=== PATIENT | female | born 1945 | race Caucasian/White ===

== ENCOUNTER 2020-05-05 08:58 | Emergency (ER) | payer MEDICARE, OTHER ==
[2020-05-05] MEDS: Acetaminophen 325 MG Tab PO ONE (09:29)
--- NOTE | 2020-05-05 09:30 | EDM.PDOC ---
ED HPI GENERAL MEDICAL PROBLEM - General Stated Complaint: INJURED RIGHT ARM Time Seen by Provider: 05/05/20 09:15 Source of Information: Reports: Patient History Limitations: Reports: No Limitations - History of Present Illness INITIAL COMMENTS - FREE TEXT/NARRATIVE: patient fell last night when she stubbed her toe on furniture landing on right wrist. Took tylenol at home last night with some relief. Presents today with increased pain, swelling, and bruising. Location: Reports: Upper Extremity, Right Severity: Moderate Improves with: Reports: None Worsens with: Reports: Movement Associated Symptoms: Reports: No Other Symptoms - Related Data Allergies Allergy/AdvReac Type Severity Reaction Status Date / Time codeine Allergy Chest Verified 02/03/14 07:28 Tightness naproxen [From Naprosyn] Allergy Rash Verified 02/03/14 07:28 Home Meds: Home Meds Aspirin [Adult Low Dose Aspirin EC] 81 mg PO DAILY 02/02/14 [History] Betamethasone/Propylene Glyc [Diprolene 0.05%] 1 applic TOP BID 02/02/14 [History] Calcium Citrate/Vitamin D3 [Calcium Citrate with D Tablet] 1 each PO DAILY 02/02/14 [History] Cholecalciferol (Vitamin D3) [Vitamin D3] 5,000 unit PO DAILY 02/02/14 [History] Cyanocobalamin (Vitamin B12) [Vitamin B12] 1,000 mcg PO DAILY 02/02/14 [History] Ferrous Gluconate 324 mg PO BID 02/02/14 [History] Iron/Multivits,Stress Formula [Stress Formula with Iron] 1 tab PO DAILY 02/02/14 [History] Levothyroxine [Synthroid] 50 mcg PO DAILY 02/02/14 [History] Lidocaine 5% [Lidoderm 5%] 1 - 3 patch TOP DAILY 02/02/14 [History] Multivitamin [Multi Vitamin Daily] 1 each PO DAILY 02/02/14 [History] Vitamin B Complex [B Complex] 1 each PO DAILY 02/02/14 [History] traMADol [Ultram] 50 mg PO Q6H PRN 02/02/14 [History] Review of Systems - Review of Systems Review Of Systems: See Below Constitutional: Reports: No Symptoms Eyes: Reports: No Symptoms Ears: Reports: No Symptoms Nose: Reports: No Symptoms Mouth/Throat: Reports: No Symptoms Respiratory: Reports: No Symptoms Cardiovascular: Reports: No Symptoms GI/Abdominal: Reports: No Symptoms Genitourinary: Reports: No Symptoms Musculoskeletal: Reports: Arm Pain Skin: Reports: Bruising Neurological: Reports: No Symptoms Psychiatric: Reports: No Symptoms ED EXAM, GENERAL - Physical Exam Exam: See Below Exam Limited By: No Limitations General Appearance: Alert, Mild Distress Throat/Mouth: Normal Voice Head: Atraumatic Neck: Full Range of Motion Respiratory/Chest: No Respiratory Distress Peripheral Pulses: 3+: Radial (L), Radial (R) Back Exam: Full Range of Motion Extremities: Joint Swelling, Arm Pain, Limited Range of Motion Neurological: Alert, Oriented, Normal Gait, No Motor/Sensory Deficits Psychiatric: Normal Affect, Normal Mood Skin Exam: Warm, Dry, Intact Course - Vital Signs Last Recorded V/S: Last Vital Signs Temp 97.6 F 05/05/20 10:04 Pulse 82 05/05/20 10:04 Resp 16 05/05/20 10:04 BP 143/71 H 05/05/20 10:04 Pulse Ox 99 05/05/20 10:04 - Orders/Labs/Meds Orders: Active Orders 24 hr Category Date Time Status Wrist Comp Min 3V Rt [CR] Stat Exams 05/05/20 09:07 Taken Meds: Medications Discontinued Medications Generic Name Dose Route Start Last Admin Trade Name Felecia PRN Reason Stop Dose Admin Acetaminophen Confirm 05/05/20 09:32 Tylenol Administered 05/05/20 09:33 Dose 650 mg .ROUTE .STK-MED ONE Acetaminophen 650 mg 05/05/20 09:24 05/05/20 09:29 Tylenol PO 05/05/20 09:25 650 mg NOW ONE Administration Departure - Departure Time of Disposition: 10:20 Disposition: Home, Self-Care 01 Condition: Good Clinical Impression: Wrist fracture, right Qualifiers: Encounter type: initial encounter Fracture type: closed Qualified Code(s): S62.101A - Fracture of unspecified carpal bone, right wrist, initial encounter for closed fracture - Discharge Information *PRESCRIPTION DRUG MONITORING PROGRAM REVIEWED*: Not Applicable *COPY OF PRESCRIPTION DRUG MONITORING REPORT IN PATIENT BARBARA: Not Applicable Instructions: Wrist Fracture Treated With Immobilization Referrals: PCP,None [Primary Care Provider] - Forms: ED Department Discharge Additional Instructions: Ice and elevate right wrist, for 15-20 minutes every 3-4 hours. Take tylenol as needed. Return to ED for any increased or new concerning symptoms. Follow up with your PCP next week for recheck and casting. . Sepsis Event Note (ED) - Focused Exam Vital Signs: Vital Signs Temp Pulse Resp BP Pulse Ox 05/05/20 10:04 97.6 F 82 16 143/71 H 99 - My Orders Last 24 Hours: My Active Orders 05/05/20 09:07 Wrist Comp Min 3V Rt [CR] Stat - Assessment/Plan Last 24 Hours: My Active Orders 05/05/20 09:07 Wrist Comp Min 3V Rt [CR] Stat
[2020-05-05] MEDS ORDERED: Acetaminophen 325 MG Tab ONE (09:32)
[2020-05-05 10:07] VITALS: BP 143/71; PULSE 82
--- NOTE | 2020-05-05 10:32 | CR ---
DATE OF SERVICE: 05/05/2020 CLINICAL DATA: Injury Right Wrist: No priors. There is a minimally displaced, minimally impacted oblique fracture through the distal radial metaphysis. There is also mildly impacted, minimally displaced fracture through the distal ulnar metaphysis. There is a mildly displaced fracture through the base of the ulnar styloid. No other acute abnormalities. There are osteoarthritic changes involving multiple joints. There is a healed fracture through the distal radial diaphysis that is fixed internally. There is an intramedullary afia within the ulna. [email or web address]
== END 2020-05-05 10:20 | disposition home or self-care (01) ==
LOC: LB.ED 08:58
DX: S62.101A Fracture of unspecified carpal bone, right wrist, initial encounter for closed fracture (principal); Z88.5 Allergy status to narcotic agent; Z88.8 Allergy status to other drugs, medicaments and biological substances; Z79.82 Long term (current) use of aspirin; Z79.899 Other long term (current) drug therapy; W01.198A Fall on same level from slipping, tripping and stumbling with subsequent striking against other object, initial encounter
CPT/HCPCS: 29125; 73110-RT; 99282; 99283-25; A9270-GY

== ENCOUNTER 2021-06-17 10:43 | Emergency (ER) | payer MEDICARE, OTHER ==
[2021-06-17] MEDS: HYDROmorphone 2 MG/ML SDV SUBCUT ONE (11:12)
[2021-06-17] MEDS ORDERED: Acetaminophen/HYDROcodone 325-5 MG Tab ONE (12:00)
--- NOTE | 2021-06-17 12:49 | EDM.PDOC ---
ED HPI GENERAL MEDICAL PROBLEM - General Chief Complaint: General Stated Complaint: arm injury Time Seen by Provider: 06/17/21 11:00 - History of Present Illness INITIAL COMMENTS - FREE TEXT/NARRATIVE: Pt is here with C/O falling at home and injuring her left arm. She thinks she broke it. She just lost her balance she tells me. She also fell 2 days ago when she stumbled, with no obvious injuries. She denies any other injuries, stating it is just her left arm, from the elbow to the hand. - Related Data Allergies Allergy/AdvReac Type Severity Reaction Status Date / Time codeine Allergy Chest Verified 02/03/14 07:28 Tightness naproxen [From Naprosyn] Allergy Rash Verified 02/03/14 07:28 Home Meds: Home Meds Aspirin [Adult Low Dose Aspirin EC] 81 mg PO DAILY 02/02/14 [History] Betamethasone/Propylene Glyc [Diprolene 0.05%] 1 applic TOP BID 02/02/14 [History] Calcium Citrate/Vitamin D3 [Calcium Citrate with D Tablet] 1 each PO DAILY [History] Cholecalciferol (Vitamin D3) [Vitamin D3] 5,000 unit PO DAILY 02/02/14 [History] Cyanocobalamin (Vitamin B12) [Vitamin B12] 1,000 mcg PO DAILY 02/02/14 [History] Ferrous Gluconate 324 mg PO BID 02/02/14 [History] Iron/Multivits,Stress Formula [Stress Formula with Iron] 1 tab PO DAILY 02/02/14 [History] Levothyroxine [Synthroid] 50 mcg PO DAILY 02/02/14 [History] Lidocaine 5% [Lidoderm 5%] 1 - 3 patch TOP DAILY 02/02/14 [History] Multivitamin [Multi Vitamin Daily] 1 each PO DAILY 02/02/14 [History] Vitamin B Complex [B Complex] 1 each PO DAILY 02/02/14 [History] traMADol [Ultram] 50 mg PO Q6H PRN 02/02/14 [History] Past Medical History - Past Health History Medical/Surgical History: Denies Medical/Surgical History Musculoskeletal History: Reports: Fracture Social & Family History - Tobacco Use Tobacco Use Status *Q: Light Tobacco User Years of Tobacco use: 18 Packs/Tins Daily: 1 ED ROS GENERAL - Review of Systems Review Of Systems: Comprehensive ROS is negative, except as noted in HPI. Musculoskeletal: Reports: Other (left arm injury.) ED EXAM, GENERAL - Physical Exam Exam: See Below General Appearance: Moderate Distress (due to the pain she rates at 10/10.) Extremities: Other (her left arm is wrapped in an [place] wrap. Her hand is bruised and moderately swollen. skin is intact. she has pain with light touch from the elbow down to her hand.) Course - Vital Signs Last Recorded V/S: Last Vital Signs Temp 98.0 F 06/17/21 11:28 Pulse 86 06/17/21 11:28 Resp 24 H 06/17/21 11:28 BP 108/37 L 06/17/21 11:28 Pulse Ox - Orders/Labs/Meds Orders: Active Orders 24 hr Category Date Time Status Elbow Min 3V Lt [CR] Stat Exams 06/17/21 11:12 Taken Hand Comp Min 3V Lt [CR] Stat Exams 06/17/21 11:12 Taken Wrist Comp Min 3V Lt [CR] Stat Exams 06/17/21 11:12 Taken Meds: Medications Discontinued Medications Generic Name Dose Route Start Last Admin Trade Name Freq PRN Reason Stop Dose Admin Hydromorphone HCl 1 mg 06/17/21 11:12 Hydromorphone 2 Mg/Ml Sdv SUBCUT 06/17/21 11:13 ONETIME ONE - Re-Assessments/Exams Free Text/Narrative Re-Assessment/Exam: 06/17/21 12:47 She was given Dilaudid 1 mg Subq. X-RAYS of her elbow, wrist, hand show a distal radial fracture, with minimal displacement. Looks like a little impaction. We put her in a gutter splint with a sling. She was still C/O alot of pain, but after splinting she feels better. Hensel will be given for pain control. She is to apple ice frequently for 2-3 days. She needs to re check in the clinic or with Ortho in 3-5 days for casting, sooner prn. Departure - Departure Time of Disposition: 12:40 Disposition: Home, Self-Care 01 Condition: Good Clinical Impression: Radial fracture Qualifiers: Encounter type: initial encounter Radius location: distal Fracture type: closed Fracture morphology: other extra-articular Laterality: left Qualified Code(s): S52.423U - Other extraarticular fracture of lower end of left radius, initial encounter for closed fracture - Discharge Information *PRESCRIPTION DRUG MONITORING PROGRAM REVIEWED*: Yes *COPY OF PRESCRIPTION DRUG MONITORING REPORT IN PATIENT BARBARA: Yes Instructions: Lisfranc Injury Referrals: PCP,None [Primary Care Provider] - Forms: ED Department Discharge Care Plan Goals: follow up with clinic or ortho at hospital on Friday for cast placement Pain medication as directed 4-6 hours as needed Sepsis Event Note (ED) - Evaluation Sepsis Screening Result: No Definite Risk - Focused Exam Vital Signs: Vital Signs Temp Pulse Resp BP 06/17/21 11:28 98.0 F 86 24 H 108/37 L - My Orders Last 24 Hours: My Active Orders 06/17/21 11:12 Elbow Min 3V Lt [CR] Stat Hand Comp Min 3V Lt [CR] Stat Wrist Comp Min 3V Lt [CR] Stat - Assessment/Plan Last 24 Hours: My Active Orders 06/17/21 11:12 Elbow Min 3V Lt [CR] Stat Hand Comp Min 3V Lt [CR] Stat Wrist Comp Min 3V Lt [CR] Stat
--- NOTE | 2021-06-18 09:30 | CR ---
Date of Service: 06/17/21 Clinical Data: injury LEFT HAND: There is an impacted, comminuted, intraarticular fracture through the distal radius. There is also a mildly displaced avulsion fracture through the tip of the ulnar styloid. No other acute abnormalities. There are osteoarthritic changes involving multiple joints. The base of the first metacarpal is subluxed laterally with respect to the greater multangular carpal bone. There are multiple corticated osseous densities adjacent to the carpometacarpal joint of the thumb consistent with old bony avulsions or loose bodies. No other significant findings. [id number] [facility]
--- NOTE | 2021-06-18 09:35 | CR ---
Date of Service: 06/17/21 Clinical Data: injury LEFT WRIST: There is a mildly impacted, comminuted, intraarticular fracture through the distal radius. There is a mildly displaced avulsion fracture from the tip of the ulnar styloid. There are osteoarthritic changes involving multiple joints of the wrist. There is mild lateral subluxation of the base of the first metacarpal with respect to the greater multangular carpal bone. There are multiple corticated osseous densities adjacent to the carpometacarpal joint of the thumb consistent with old bony avulsions or loose bodies. No other significant findings. [id number] [facility]
--- NOTE | 2021-06-18 09:53 | CR ---
Date of Service: 06/17/21 Clinical Data: injury LEFT ELBOW: The lateral views are not adequately positioned. I do not see an acute fracture or dislocation. No evidence of joint effusion; however, both cannot be completely excluded. No other significant findings. [id number] [facility]
== END 2021-06-17 12:50 | disposition home or self-care (01) ==
LOC: LB.ED 10:43
DX: S52.552A Other extraarticular fracture of lower end of left radius, initial encounter for closed fracture (principal); Z72.0 Tobacco use; Z79.899 Other long term (current) drug therapy; Z79.82 Long term (current) use of aspirin; Z88.8 Allergy status to other drugs, medicaments and biological substances; W01.0XXA Fall on same level from slipping, tripping and stumbling without subsequent striking against object, initial encounter
CPT/HCPCS: 29125; 73080; 73110; 73130; 96372; 99283; A9270; J1170

== ENCOUNTER 2021-07-12 11:52 | Observation (INO) | payer MEDICARE, OTHER ==
[2021-07-12] MEDS ORDERED: HYDROmorphone 2 MG/ML SDV ONE (12:12)
[2021-07-12] MEDS ORDERED: HYDROmorphone 2 MG/ML SDV IM ONE (12:15)
[2021-07-12] MEDS ORDERED: Ketorolac 30 MG/ML SDV IM ONE ×2 (12:57→13:01)
[2021-07-12] MEDS ORDERED: Ondansetron 4 MG Tab.DIS PO PRN ×2 (12:57→13:49)
[2021-07-12] MEDS ORDERED: Ketorolac 30 MG/ML SDV ONE (13:28)
[2021-07-12] MEDS: Acetaminophen/HYDROcodone 325-5 MG Tab PO PRN ×2 (17:13→21:15)
[2021-07-12] MEDS ORDERED: Sertraline 100 MG Tab PO SCH (20:00)
[2021-07-12] MEDS: FERROUS GLUCONATE 324 MG PO SCH (20:10)
[2021-07-13] MEDS: Acetaminophen/HYDROcodone 325-5 MG Tab PO PRN ×5 (01:38→20:40)
[2021-07-13] MEDS: [UNRECOGNIZED DRUG - OTHER] PO SCH (09:52)
[2021-07-13] MEDS: VITAMIN D3 PO SCH (09:52)
[2021-07-13] MEDS: Non-Formulary Medication 1 Each (Aspirin [Adult Low Dose Aspirin Ec] 81 MG Tablet.Dr) PO SCH (09:52)
[2021-07-13] MEDS: CALCIUM CITRATE PO SCH (09:52)
[2021-07-13] MEDS: Non-Formulary Medication 1 Each (Cholecalciferol (Vitamin D3) [Vitamin D3] 5,000 UNIT Caps PO SCH (09:52)
[2021-07-13] MEDS: CYANOCOBALAMIN 1000 MCG PO SCH (09:53)
[2021-07-13] MEDS: FERROUS GLUCONATE 324 MG PO SCH ×2 (09:53→20:34)
[2021-07-13] MEDS: Non-Formulary Medication 1 Each (Multivitamin [Multi-Vitamin Daily] 1 EACH Tablet) PO SCH (09:53)
[2021-07-13] MEDS: LEVOTHYROXINE 50 MCG PO SCH (09:53)
[2021-07-13] MEDS: Non-Formulary Medication 1 Each (Vitamin B Complex [B Complex] 1 EACH Tablet) PO SCH (09:54)
[2021-07-13] MEDS: Ibuprofen 400 MG Tab ONE ×2 (17:45→18:13)
[2021-07-13] MEDS: Ibuprofen 400 MG Tab PO SCH (18:13)
[2021-07-14] MEDS: Ibuprofen 400 MG Tab PO SCH (02:17)
[2021-07-14] MEDS: [UNRECOGNIZED DRUG - OTHER] PO SCH (07:20)
[2021-07-14] MEDS: CALCIUM CITRATE PO SCH (07:20)
[2021-07-14] MEDS: VITAMIN D3 PO SCH (07:20)
[2021-07-14] MEDS: Non-Formulary Medication 1 Each (Aspirin [Adult Low Dose Aspirin Ec] 81 MG Tablet.Dr) PO SCH (07:20)
[2021-07-14] MEDS: Non-Formulary Medication 1 Each (Cholecalciferol (Vitamin D3) [Vitamin D3] 5,000 UNIT Caps PO SCH (07:21)
[2021-07-14] MEDS: CYANOCOBALAMIN 1000 MCG PO SCH (07:21)
[2021-07-14] MEDS: Non-Formulary Medication 1 Each (Multivitamin [Multi-Vitamin Daily] 1 EACH Tablet) PO SCH (07:21)
[2021-07-14] MEDS: Non-Formulary Medication 1 Each (Vitamin B Complex [B Complex] 1 EACH Tablet) PO SCH (07:22)
[2021-07-14] MEDS: FERROUS GLUCONATE 324 MG PO SCH (07:23)
[2021-07-14] MEDS: LEVOTHYROXINE 50 MCG PO SCH (07:24)
[2021-07-14] MEDS: Acetaminophen/HYDROcodone 325-5 MG Tab PO PRN (09:02)
[2021-07-14] MEDS ORDERED: Acetaminophen/HYDROcodone 325-5 MG Tab ONE (10:30)
== END 2021-07-14 10:35 | disposition home or self-care (01) ==
LOC: LB.ED 11:52 → LB.MS 13:38
PROVIDERS: ADMIT Physician Assistant; ATTEND Physician Assistant
DX: R55 Syncope and collapse (principal); S49.91XA Unspecified injury of right shoulder and upper arm, initial encounter; S62.102D Fracture of unspecified carpal bone, left wrist, subsequent encounter for fracture with routine healing; Z20.822 Contact with and (suspected) exposure to COVID-19; Z88.8 Allergy status to other drugs, medicaments and biological substances; Z79.82 Long term (current) use of aspirin; Z79.899 Other long term (current) drug therapy; W19.XXXA Unspecified fall, initial encounter
CPT/HCPCS: 36415; 70450; 73060-RT; 73080-RT; 73090-RT; 73100-LT; 73200-RT; 80048; 81001; 85025; 96372; 97161-GP; 99218; 99225; 99285; 99285-25; A0425; A0429; A9270-GY; G0378; J1170; J1885; U0002